=== PATIENT | female | born 1960 | race African-American/Black ===

== ENCOUNTER 2016-12-16 11:06 | Inpatient (IN) | payer OTHER ==
[2016-12-16 13:20] VITALS: BMI 17.7
--- NOTE | 2016-12-16 13:56 | HP ---
CIWA Score - CIWA Score Nausea/Vomitin Muscle Tremors: 3 Anxiety: 3 Agitation: 3 Paroxysmal Sweats: 2 Orientation: 0-Oriented Tacttile Disturbances: 2-Mild Itch/Numbness/Burn Auditory Disturbances: 2-Mild Harshness/Frighten Visual Disturbances: 2-Mild Sensitivity Headache: 2-Mild CIWA-Ar Total Score: 22 Admission ROS BHS - HPI Chief Complaint: I NEED HELP TO STOP ALCOHOL,COCAINE,MMTP Allergies/Adverse Reactions: Allergies Allergy/AdvReac Type Severity Reaction Status Date / Time No Known Allergies Allergy Verified 12/16/16 13:36 History of Present Illness: THIS 56 YEARS OLD FEMALE BLACK FEMALE WITH ALCOHOL,COCAINE DEPENDENCE,MMTP 60 MGS /DAY,LAST MEDICATED 12/15/16 SEVERAL ADMISSIONS ,LAST 10/20 [facility] LONGEST PERIOD OF SOBRIETY 8 YEARS Exam Limitations: No Limitations - Ebola screening Have you traveled outside of the country in the last 21 days: No Have you been sick,other than usual withdrawal symptoms: No - Review of Systems Constitutional: Chills, Loss of Appetite, Malaise, Night Sweats, Changes in sleep, Weakness, Unintentional Wgt. Loss EENT: reports: Tearing, Nose Congestion Respiratory: reports: No Symptoms reported, Other (ASTHMA) Cardiac: reports: No Symptoms Reported GI: reports: Nausea, Vomiting, Abdominal cramping : reports: No Symptoms Reported Musculoskeletal: reports: Back Pain, Muscle Pain Integumentary: reports: Dryness Neuro: reports: Headache, Tremors Endocrine: reports: No Symptoms Reported Hematology: reports: No Symptoms Reported Psychiatric: reports: Judgement Intact, Mood/Affect Appropiate, Orientated x3 Patient History - Patient Medical History Hx Anemia: No Hx Asthma: Yes (ON ALBUTEROL INHALER) Hx Chronic Obstructive Pulmonary Disease (COPD): No Hx Cancer: No Hx Cardiac Disorders: Yes (OLD [place] LAST 3 YEARS AGO) Hx Congestive Heart Failure: No Hx Hypertension: Yes (not on meds.) Hx Hypercholesterolemia: Yes (not taking any meds) Hx Pacemaker: No HX Cerebrovascular Accident: No Hx Seizures: No Hx Dementia: No Hx Diabetes: No Hx Gastrointestinal Disorders: No Hx Liver Disease: No Hx Genitourinary Disorders: No Hx Sexually Transmitted Disorders: No Hx Renal Disease (ESRD): No Hx Thyroid Disease: No Hx Human Immunodeficiency Virus (HIV): No (negative 3 weeks ago) Hx Hepatitis C: No Hx Depression: Yes Hx Suicide Attempt: No Hx Bipolar Disorder: Yes (not taking any meds) Hx Schizophrenia: No Other Medical History: NO SUICIDAL,NO HOMICIDAL - Patient Surgical History Past Surgical History: No - PPD History Previous Implant?: Yes Documented Results: Positive w/o proof Implanted On Prior R Admission?: No PPD to be Administered?: No - Reproductive History Patient is a Female of Child Bearing Age (11 -55 yrs old): Yes Patient : No - Smoking Cessation Smoking history: Current every day smoker Have you smoked in the past 12 months: Yes Aproximately how many cigarettes per day: 10 Hx Chewing Tobacco Use: No Initiated information on smoking cessation: Yes 'Breaking Loose' booklet given: 12/16/16 - Substance & Tx. History Hx Alcohol Use: Yes Hx Substance Use: Yes Substance Use Type: Alcohol, Cocaine, Marijuana - Substances Abused Alcohol Route: Oral Frequency: Daily Amount used: 4 pints vodka Age of first use: 14 Date of Last Use: 12/16/16 Cocaine Route: Smoking Frequency: Daily Amount used: $100 Age of first use: 17 Date of Last Use: 12/15/16 Marijuana/Hashish Route: Smoking Frequency: Daily Amount used: $5 Age of first use: 14 Date of Last Use: 12/15/16 Family Disease History - Family Disease History Family Disease History: Diabetes: Brother, Other: Father (), Mother ( ) Admission Physical Exam S - Vital Signs Vital Signs: Vital Signs - 24 hr 12/16/16 13:17 Temperature 96.4 F L Pulse Rate 56 L Respiratory 20 Rate Blood Pressure 157/80 - Physical General Appearance: Yes: Moderate Distress, Tremorous, Irritable, Sweating, Anxious HEENTM: Yes: Hearing grossly Normal, Normal ENT Inspection, CHEMA, Pharynx Normal , Nasal Congestion Respiratory: Yes: Lungs Clear, Normal Breath Sounds, No Respiratory Distress Neck: Yes: Within Normal Limits, Supple, Trachea in good position Breast: Yes: Within Normal Limits Cardiology: Yes: Within Normal Limits, Regular Rhythm, Regular Rate, S1, S2 Abdominal: Yes: Within Normal Limits, Normal Bowel Sounds, Non Tender, Flat, Soft Genitourinary: Yes: Within Normal Limits Back: Yes: Within Normal Limits, Normal Inspection, Muscle Spasm Musculoskeletal: Yes: full range of Motion, Back pain, Joint Stiffness, Muscle Pain Extremities: Yes: Normal Inspection, Normal Range of Motion, Tremors Neurological: Yes: spinning frame fixer II-XII NML intact, Fully Oriented, Alert, Motor Strength 5/5 Integumentary: Yes: Dry Lymphatic: Yes: Within Normal Limits - Diagnostic (1) Asthma Current Visit: No Status: Chronic (2) Cocaine dependence Current Visit: No Status: Chronic (3) Hypercholesteremia Current Visit: No Status: Chronic (4) Methadone maintenance therapy patient Current Visit: No Status: Chronic Comment: last dose taken yesterday with 40mg. dose verified for todays dose (5) Nicotine dependence Current Visit: No Status: Chronic (6) Alcohol dependence with uncomplicated withdrawal Current Visit: Yes Status: Acute (7) Hypertension Current Visit: No Status: Chronic (8) Bipolar disorder Current Visit: Yes Status: Acute (9) Weight loss Current Visit: Yes Status: Acute (10) Vaginitis Current Visit: Yes Status: Acute Cleared for Admission [facility] - Detox or Rehab [facility] Level of Care: Medically Managed Detox Regimen/Protocol: Librium [facility] Breath Alcohol Content Breath Alcohol Content: 0 Urine Pregancy Test - Result Urine Test Results: Negative- NO Line Present Urine Drug Screen - Results Drug Screen Negative: No Urine Drug Screen Results: THC-Marijuana, OPAL-Cocaine, OPI-Opiates, MTD- Methadone
[2016-12-16] MEDS ORDERED: MENTHOL/PHENOL 1 EACH UD MM PRN (14:11)
[2016-12-16] MEDS ORDERED: diphenhydrAMINE HCL 50 MG CAPSULE PO PRN (14:11)
[2016-12-16] MEDS ORDERED: ACETAMINOPHEN 325 MG TABLET (FP) PO PRN (14:11)
[2016-12-16] MEDS ORDERED: NICOTINE POLACRILEX 2 MG GUM BUC PRN (14:11)
[2016-12-16] MEDS ORDERED: LOPERAMIDE HCL 2 MG CAPSULE PO PRN (14:11)
[2016-12-16] MEDS ORDERED: MAG HYDROX/AL HYDROX/SIMETH 30 ML UNIT-DOSE CUP PO PRN (14:11)
[2016-12-16] MEDS ORDERED: IBUPROFEN 400 MG TABLET (FP) PO PRN (14:11)
[2016-12-16] MEDS ORDERED: hydrOXYzine PAMOATE 25 MG CAPSULE (FP) PO PRN (14:11)
[2016-12-16] MEDS ORDERED: chlordiazePOXIDE HCL 25 MG CAPSULE PO PRN (14:11)
[2016-12-16] MEDS ORDERED: MAGNESIUM HYDROX 2400MG/30ML ORAL SUSPENSION 30 ML CUP PO PRN (14:11)
[2016-12-16] MEDS ORDERED: P-EPHED 60MG/TRIPROLIDI 2.5MG TABLET PO PRN (14:11)
[2016-12-16] MEDS ORDERED: guaiFENesin/D-METHORPHAN HB 10 ML UNIT-DOSE CUPS PO PRN (14:11)
[2016-12-16] MEDS ORDERED: MAGNESIUM CITRATE 300 ML BOTTLE PO PRN (14:11)
[2016-12-16] MEDS ORDERED: ALBUTEROL SO4 6.7 GM HFA INHALER IH PRN (14:16)
[2016-12-16] MEDS ORDERED: chlordiazePOXIDE HCL 25 MG CAPSULE PO ONE (14:32)
[2016-12-16] MEDS ORDERED: METHADONE HCL 10 MG TABLET PO ONE (14:51)
[2016-12-16] MEDS ORDERED: METHADONE 40 MG, METHADONE 20 MG PO ONE (15:05)
[2016-12-16] MEDS ORDERED: METHADONE HCL 40 MG DISPERSABLE TABLET ONE (15:43)
[2016-12-16] MEDS ORDERED: METHADONE HCL 10 MG TABLET ONE (15:44)
[2016-12-16] MEDS: chlordiazePOXIDE HCL 25 MG CAPSULE PO SCH ×2 (17:35→22:24)
[2016-12-16 18:42] LABS: URINE APPEARANCE CLEAR; URINE BILIRUBIN NEGATIVE (NEGATIVE); URINE BLOOD NEGATIVE (NEGATIVE); URINE COLOR STRAW; URINE GLUCOSE (UA) NEGATIVE (NEGATIVE); URINE KETONE NEGATIVE (NEGATIVE); URINE NITRITE NEGATIVE (NEGATIVE); URINE PROTEIN NEGATIVE (NEGATIVE); URINE UROBILINOGEN NEGATIVE E.U./dl (0.2-1.0)
[2016-12-16 18:45] LABS: URINE LEUK ESTERASE 1+ (NEGATIVE)
[2016-12-16 18:49] LABS: URINE RBC <1 /hpf (0-3); URINE WBC 5 /hpf (3-5)
[2016-12-16] MEDS: THIAMINE HCL 100 MG TABLET (FP) PO SCH (22:24)
[2016-12-16] MEDS: MICONAZOLE NITRATE 100 MG SUPP SUPP.VAG PV SCH (23:02)
[2016-12-17] MEDS ORDERED: METHADONE HCL 40 MG DISPERSABLE TABLET ONE (04:42)
[2016-12-17] MEDS ORDERED: METHADONE HCL 10 MG TABLET ONE (04:43)
[2016-12-17] MEDS ORDERED: METHADONE HCL 10 MG TABLET PO SCH (06:00)
[2016-12-17] MEDS: METHADONE 40 MG, METHADONE 20 MG PO SCH (06:06)
[2016-12-17] MEDS: chlordiazePOXIDE HCL 25 MG CAPSULE PO SCH ×4 (06:06→22:24)
[2016-12-17 10:23] LABS: MCH 26.4 pg (25.7-33.7); MCHC 32.5 g/dl (32.0-36.0); MEAN CELL VOLUME 81.2 fl (80-96); PLATELET COUNT 275 K/MM3 (134-434); RDW 14.1 % (11.6-15.6); WHITE BLOOD COUNT 7.1 K/mm3 (4.0-10.0)
--- NOTE | 2016-12-17 10:39 | CONSULT ---
[facility] Psychiatric Consult - Data Date of interview: 12/17/16 Admission source: [facility] Identifying data: Readmission to [facility] for this 56 y/o AA female seeking detox treatment on [address] [place] [address] for alcohol,cocaine,opioid and marijuana dependence.Patient is single,a mother of two,homeless,unemployed and supported on Public Assistance. Substance Abuse History: - Smoking Cessation. Smoking history: Current every day smoker. Have you smoked in the past 12 months: Yes. Aproximately how many cigarettes per day: 10. Hx Chewing Tobacco Use: No. Initiated information on smoking cessation: Yes. 'Breaking Loose' booklet given: 12/16/16. - Substance & Tx. History. Hx Alcohol Use: Yes. Hx Substance Use: Yes. Substance Use Type : Alcohol, Cocaine, Marijuana. - Substances Abused. Alcohol. Route: Oral. Frequency: Daily. Amount used: 4 pints vodka. Age of first use: 14. Date of Last Use: 12/16/16. Cocaine. Route: Smoking. Frequency: Daily. Amount used: $100. Age of first use: 17. Date of Last Use: 12/15/16. Marijuana/ Hashish. Route: Smoking. Frequency: Daily. Amount used: $5. Age of first use : 14. Date of Last Use: 12/15/16. Confirmed by patient. Medical History: Bronchial asthma,hypertension,dyslipidemia and a history of myocardial infarction. Psychiatric History: Diagnosed with Bipolar Disorder.Past psychiatric hospitalizations at [facility].Prescribed seroquel 200 mg/hs + trazodone 100 mg/hs as per self-report.Ms Martinez indicates that she took her medications about a week ago.Eager to resume regimen at [address] [place] [address].Patient gets her psychiatric outpatient services at [facility] clinic.She admits to a remote history of suicide attempt via hanging. Physical/Sexual Abuse/Trauma History: Patient denies. Additional Comment: Urine Drug Screen Results: THC-Marijuana, OPAL-Cocaine, OPI- Opiates, MTD-Methadone.Noted. Mental Status Exam - Mental Status Exam Alert and Oriented to: Time, Place, Person Cognitive Function: Good Patient Appearance: Well Groomed Mood: Withdrawn Affect: Constricted Patient Behavior: Sedated (light sedation), Fatigued, Cooperative Speech Pattern: Clear, Delayed Voice Loudness: Moderately Soft/Quiet Thought Process: Goal Oriented Thought Disorder: Not Present Hallucinations: Denies Suicidal Ideation: Denies Homicidal Ideation: Denies Insight/Judgement: Poor Sleep: Well Appetite: Good Muscle strength/Tone: Normal Gait/Station: Normal Psychiatric Findings - Problem List ([place] 1, 2,3) (1) Alcohol dependence with uncomplicated withdrawal Current Visit: Yes Status: Acute (2) Cocaine dependence Current Visit: Yes Status: Acute (3) Nicotine dependence Current Visit: Yes Status: Acute (4) Opioid dependence Current Visit: Yes Status: Acute (5) Opioid dependence on agonist therapy Current Visit: Yes Status: Acute (6) Bipolar disorder Current Visit: Yes Status: Chronic (7) Asthma Current Visit: Yes Status: Chronic (8) Hypercholesteremia Current Visit: Yes Status: Chronic (9) Hypertension Current Visit: Yes Status: Chronic - Initial Treatment Plan Initial Treatment Plan: Psychoeducation.Detoxification.Medications : seroquel 200 mg po hs + trazodone is held (for now).Side effects/benefits of both drugs are discussed with the patient.She agrees with this plan of care.Observation.
[2016-12-17 10:40] LABS: ALBUMIN 3.9 g/dl (3.4-5.0); ANION GAP 14 (8-16); CO2 29 mmol/L (21-32); CREATININE 0.8 mg/dL (0.55-1.02); GLUCOSE,RANDOM 99 mg/dL (74-106); SGOT/AST 28 U/L (15-37); SGPT/ALT 36 U/L (12-78)
[2016-12-17 10:43] LABS: ALK PHOS 101 U/L (45-117); BILIRUBIN,TOTAL 0.4 mg/dL (0.2-1.0); TOT PROT 8.4 g/dl (6.4-8.2)
[2016-12-17] MEDS: PRENATAL VITAMINS W/ FOLIC ACID TABLET (FP) PO SCH (10:48)
[2016-12-17] MEDS: ASPIRIN 81 MG CHEWABLE TABLETS PO SCH (10:48)
--- NOTE | 2016-12-17 14:12 | PN ---
[facility] CIWA - CIWA Score Nausea/Vomitin Muscle Tremors: 3 Anxiety: 3 Agitation: 2 Paroxysmal Sweats: 1-Minimal Palms Moist Orientation: 0-Oriented Tacttile Disturbances: 1-Very Mild Itch/Numbness Auditory Disturbances: 1-Very Mild Visual Disturbances: 1-Very Mild Sensitivity Headache: 2-Mild CIWA-Ar Total Score: 17 BHS Progress Note (SOAP) Subjective: ALERT,IRRITABLE,ANXIOUS,INTERRUPTED SLEEP,TREMOR,PAIN IN THE BODY Objective: 12/17/16 14:09 Vital Signs Temperature 98.2 F 12/17/16 10:38 Pulse Rate 89 12/17/16 10:38 Respiratory Rate 16 12/17/16 10:38 Blood Pressure 117/69 12/17/16 10:38 O2 Sat by Pulse Oximetry (%) EKG SINUS BRADYCARDIA 58/MIN NO CHEST PAIN,NO SOB,NO DIZZINESS Laboratory Last Values WBC 7.1 K/mm3 (4.0-10.0) 12/17/16 06:05 RBC 5.57 M/mm3 (3.60-5.2) H 12/17/16 06:05 Hgb 14.7 GM/dL (10.7-15.3) D 12/17/16 06:05 Hct 45.2 % (32.4-45.2) D 12/17/16 06:05 MCV 81.2 fl (80-96) 12/17/16 06:05 MCHC 32.5 g/dl (32.0-36.0) 12/17/16 06:05 RDW 14.1 % (11.6-15.6) 12/17/16 06:05 Plt Count 275 K/MM3 (134-434) 12/17/16 06:05 MPV 8.0 fl (7.5-11.1) 12/17/16 06:05 Sodium 142 mmol/L (136-145) 12/17/16 06:05 Potassium 3.7 mmol/L (3.5-5.1) 12/17/16 06:05 Chloride 99 mmol/L (98-107) 12/17/16 06:05 Carbon Dioxide 29 mmol/L (21-32) 12/17/16 06:05 Anion Gap 14 (8-16) 12/17/16 06:05 BUN 8 mg/dL (7-18) D 12/17/16 06:05 Creatinine 0.8 mg/dL (0.55-1.02) 12/17/16 06:05 Creat Clearance w eGFR > 60 (>60) 12/17/16 06:05 Random Glucose 99 mg/dL (74-106) 12/17/16 06:05 Calcium 9.0 mg/dL (8.5-10.1) 12/17/16 06:05 Total Bilirubin 0.4 mg/dL (0.2-1.0) D 12/17/16 06:05 AST 28 U/L (15-37) D 12/17/16 06:05 ALT 36 U/L (12-78) 12/17/16 06:05 Alkaline Phosphatase 101 U/L (45-117) D 12/17/16 06:05 Total Protein 8.4 g/dl (6.4-8.2) H D 12/17/16 06:05 Albumin 3.9 g/dl (3.4-5.0) D 12/17/16 06:05 Urine Color Straw 12/16/16 15:00 Urine Appearance Clear 12/16/16 15:00 Urine pH 7.0 (5.0-8.0) 12/16/16 15:00 Ur Specific [place] 1.010 (1.005-1.025) 12/16/16 15:00 Urine Protein Negative (NEGATIVE) 12/16/16 15:00 Urine Glucose (UA) Negative (NEGATIVE) 12/16/16 15:00 Urine Ketones Negative (NEGATIVE) 12/16/16 15:00 Urine Blood Negative (NEGATIVE) 12/16/16 15:00 Urine Nitrite Negative (NEGATIVE) 12/16/16 15:00 Urine Bilirubin Negative (NEGATIVE) 12/16/16 15:00 Urine Urobilinogen Negative E.U./dl (0.2-1.0) 12/16/16 15:00 Ur Leukocyte Esterase 1+ (NEGATIVE) H 12/16/16 15:00 Urine RBC <1 /hpf (0-3) 12/16/16 15:00 Urine WBC 5 /hpf (3-5) 12/16/16 15:00 Ur Epithelial Cells Rare /hpf (FEW) 12/16/16 15:00 RPR Titer Nonreactive (NONREACTIVE) D 12/17/16 06:05 Assessment: 12/17/16 14:11 WITHDRAWAL SYMPTOM Plan: CONTINUE DETOX
[2016-12-17] MEDS: QUEtiapine FUMARATE 200 MG TABLET PO SCH (22:23)
[2016-12-17] MEDS: THIAMINE HCL 100 MG TABLET (FP) PO SCH (22:23)
[2016-12-17] MEDS: MICONAZOLE NITRATE 100 MG SUPP SUPP.VAG PV SCH (22:24)
[2016-12-18] MEDS ORDERED: METHADONE HCL 10 MG TABLET ONE (04:38)
[2016-12-18] MEDS ORDERED: METHADONE HCL 40 MG DISPERSABLE TABLET ONE (04:38)
[2016-12-18] MEDS: chlordiazePOXIDE HCL 25 MG CAPSULE PO SCH ×2 (06:25→11:08)
[2016-12-18] MEDS: METHADONE 40 MG, METHADONE 20 MG PO SCH (06:25)
[2016-12-18] MEDS: PRENATAL VITAMINS W/ FOLIC ACID TABLET (FP) PO SCH (11:07)
[2016-12-18] MEDS: ASPIRIN 81 MG CHEWABLE TABLETS PO SCH (11:07)
--- NOTE | 2016-12-18 11:38 | PN ---
S CIWA - CIWA Score Nausea/Vomitin Muscle Tremors: 3 Anxiety: 2 Agitation: 2 Paroxysmal Sweats: 1-Minimal Palms Moist Orientation: 0-Oriented Tacttile Disturbances: 1-Very Mild Itch/Numbness Auditory Disturbances: 1-Very Mild Visual Disturbances: 1-Very Mild Sensitivity Headache: 2-Mild CIWA-Ar Total Score: 16 BHS Progress Note (SOAP) Subjective: ALERT,IRRITABLE,ANXIOUS,INTERRUPTED SLEEP,TREMOR Objective: 12/18/16 11:37 12/18/16 11:37 Vital Signs Temperature 98.3 F 12/18/16 10:21 Pulse Rate 58 L 12/18/16 10:21 Respiratory Rate 16 12/18/16 10:21 Blood Pressure 105/73 12/18/16 10:21 O2 Sat by Pulse Oximetry (%) Assessment: 12/18/16 11:37 WITHDRAWAL SYMPTOM Plan: CONTINUE DETOX
[2016-12-18] MEDS: chlordiazePOXIDE 5 MG CAPSULE PO SCH ×2 (17:39→22:15)
[2016-12-18] MEDS: MICONAZOLE NITRATE 100 MG SUPP SUPP.VAG PV SCH (22:15)
[2016-12-18] MEDS: THIAMINE HCL 100 MG TABLET (FP) PO SCH (22:16)
[2016-12-18] MEDS: QUEtiapine FUMARATE 200 MG TABLET PO SCH (22:16)
[2016-12-19] MEDS ORDERED: METHADONE HCL 40 MG DISPERSABLE TABLET ONE (03:59)
[2016-12-19] MEDS ORDERED: METHADONE HCL 10 MG TABLET ONE (03:59)
[2016-12-19] MEDS: METHADONE 40 MG, METHADONE 20 MG PO SCH (05:59)
[2016-12-19] MEDS: chlordiazePOXIDE 5 MG CAPSULE PO SCH ×2 (06:05→10:47)
[2016-12-19] MEDS: ASPIRIN 81 MG CHEWABLE TABLETS PO SCH (10:45)
[2016-12-19] MEDS: PRENATAL VITAMINS W/ FOLIC ACID TABLET (FP) PO SCH (10:45)
--- NOTE | 2016-12-19 10:46 | PN ---
BHS Progress Note (SOAP) Subjective: vaginal discharge foul smelling sweats groggy Objective: 12/19/16 10:45 Vital Signs Temperature 96.8 F L 12/19/16 09:34 Pulse Rate 77 12/19/16 09:34 Respiratory Rate 18 12/19/16 09:34 Blood Pressure 135/76 12/19/16 09:34 O2 Sat by Pulse Oximetry (%) awake/alert ambulating no acute distress Assessment: 12/19/16 10:45 withdrawal sx Plan: continue detox increase fluids flagyl po x 7 days d/c in am
[2016-12-19] MEDS: metroNIDAZOLE 250 MG TABLET PO SCH ×2 (11:13→22:34)
--- NOTE | 2016-12-19 13:06 | EKG ---
Test Reason : Blood Pressure : / mmHG Vent. Rate : 058 BPM Atrial Rate : 058 BPM P-R Int : 156 ms QRS Dur : 084 ms QT Int : 424 ms P-R-T Axes : 066 061 057 degrees QTc Int : 416 ms SINUS BRADYCARDIA VOLTAGE CRITERIA FOR LEFT VENTRICULAR HYPERTROPHY ABNORMAL ECG NO PREVIOUS ECGS AVAILABLE Confirmed by COLLINS JADE, AKIKO ([id number]) on 12/19/2016 1:05:47 PM Referred By: Thierry Martin Confirmed By:AKIKO GUADALUPE MD
[2016-12-19] MEDS: chlordiazePOXIDE HCL 10 MG CAPSULE PO SCH ×2 (17:34→23:55)
[2016-12-19] MEDS: THIAMINE HCL 100 MG TABLET (FP) PO SCH (22:34)
[2016-12-19] MEDS: MICONAZOLE NITRATE 100 MG SUPP SUPP.VAG PV SCH (23:55)
[2016-12-19] MEDS: QUEtiapine FUMARATE 200 MG TABLET PO SCH (23:56)
[2016-12-20] MEDS ORDERED: METHADONE HCL 40 MG DISPERSABLE TABLET ONE (04:12)
[2016-12-20] MEDS ORDERED: METHADONE HCL 10 MG TABLET ONE (04:13)
[2016-12-20] MEDS: METHADONE 40 MG, METHADONE 20 MG PO SCH (06:00)
[2016-12-20] MEDS: chlordiazePOXIDE HCL 10 MG CAPSULE PO SCH ×2 (06:00→10:29)
--- NOTE | 2016-12-20 08:27 | PN ---
S Progress Note (SOAP) Subjective: ALERT,NO COMPLAINT Objective: 12/20/16 08:25 Vital Signs Temperature 98.1 F 12/20/16 06:00 Pulse Rate 72 12/20/16 06:00 Respiratory Rate 16 12/20/16 06:00 Blood Pressure 134/77 12/20/16 06:00 O2 Sat by Pulse Oximetry (%) Assessment: 12/20/16 08:25 DETOX COMPLETED,NO WITHDRAWAL SYMPTOM Plan: DISCHARGE TODAY,FOLLOW UP WITH AFTER CARE PROGRAM ARRANGEMENT
--- NOTE | 2016-12-20 08:42 | DS ---
[facility] Detox Discharge Summary Admission Date: 12/16/16 Discharge Date: 12/20/16 - History Present History: Alcohol Dependence, Cocaine Dependence, MMTP Additional Comments: FOLLLOW UP WITH AFTER [facility] PROGRAM ARRANGEMENT AND PMD FOR MEDICAL PROBLEM Pertinent Past History: ASTHMA HYPERTENSION NICOTINE DEPENDENCE WEIGHT LOSS BIPOLAR DISORDER VAGINITIS - Physical Exam Results Vital Signs: Vital Signs Temperature 98.1 F 12/20/16 06:00 Pulse Rate 72 12/20/16 06:00 Respiratory Rate 16 12/20/16 06:00 Blood Pressure 134/77 12/20/16 06:00 O2 Sat by Pulse Oximetry (%) Pertinent Admission Physical Exam Findings: WITHDRAWAL SYMPTOM - Treatment Hospital Course: Detox Protocol Followed, Detoxed Safely, Responded well, Discharged Condition Good, Rehab Referral Accepted Patient has Accepted a Rehab Referral to: [facility] - Medication Discharge Medications: Ambulatory Orders Quetiapine Fumarate [Seroquel -] 200 mg PO HS 12/16/16 Trazodone HCl [Desyrel -] 100 mg PO HS 12/16/16 Quetiapine Fumarate [Seroquel -] 200 mg PO HS #30 tab 12/17/16 Albuterol Sulfate Inhaler - [Ventolin HFA Inhaler -] 2 inh PO Q4H PRN #1 inh Aspirin [ASA -] 81 mg PO DAILY #30 tab 12/20/16 Metronidazole [Flagyl -] 500 mg PO BID #14 tablet 12/20/16 - Diagnosis (1) Asthma Current Visit: Yes Status: Chronic (2) Cocaine dependence Current Visit: Yes Status: Acute (3) Hypercholesteremia Current Visit: Yes Status: Chronic (4) Methadone maintenance therapy patient Current Visit: No Status: Chronic (5) Nicotine dependence Current Visit: Yes Status: Acute (6) Alcohol dependence with uncomplicated withdrawal Current Visit: Yes Status: Acute (7) Hypertension Current Visit: Yes Status: Chronic (8) Bipolar disorder Current Visit: Yes Status: Chronic (9) Weight loss Current Visit: Yes Status: Acute (10) Vaginitis Current Visit: Yes Status: Acute - AMA Did Patient Leave Against Medical Advice: No
[2016-12-20 09:39] VITALS: BP 148/86; PULSE 79; TEMP 97.6
[2016-12-20] MEDS: ASPIRIN 81 MG CHEWABLE TABLETS PO SCH (10:28)
[2016-12-20] MEDS: PRENATAL VITAMINS W/ FOLIC ACID TABLET (FP) PO SCH (10:28)
[2016-12-20] MEDS: metroNIDAZOLE 250 MG TABLET PO SCH (10:28)
== END 2016-12-20 11:05 | disposition home or self-care (01) | DRG 773 ==
LOC: YASAS 11:06 → Y6N 14:24
PROVIDERS: ADMIT Internal Medicine Addiction Medicine; ATTEND Internal Medicine Addiction Medicine
PROC: HZ2ZZZZ Detoxification Services for Substance Abuse Treatment (ICD-10-PCS; principal; 2016-12-16)
DX: F10.230 Alcohol dependence with withdrawal, uncomplicated (principal); F11.20 Opioid dependence, uncomplicated; F14.20 Cocaine dependence, uncomplicated; F17.210 Nicotine dependence, cigarettes, uncomplicated; F31.9 Bipolar disorder, unspecified; J45.909 Unspecified asthma, uncomplicated; E78.5 Hyperlipidemia, unspecified; I25.2 Old myocardial infarction; I10 Essential (primary) hypertension; R00.1 Bradycardia, unspecified; N76.0 Acute vaginitis; Z87.898 Personal history of other specified conditions
CPT/HCPCS: 36415; 71010-TC; 80053; 81003; 81015; 85027; 86593; 93005; 93010

== ENCOUNTER 2019-05-01 13:50 | Inpatient (IN) | payer OTHER ==
[2019-05-01 15:22] VITALS: BMI 18.8
--- NOTE | 2019-05-01 17:06 | HP ---
CIWA Score Nausea/Vomitin-Mild Nausea/No Vomiting Muscle Tremors: 1-None Visible, but [place] Anxiety: 1-Mildly Anxious Agitation: 1-Slight > Activity Paroxysmal Sweats: No Perspiration Orientation: 0-Oriented Tacttile Disturbances: 0-None Auditory Disturbances: 0-None Visual Disturbances: 0-None Headache: 1-Very Mild CIWA-Ar Total Score: 5 - Admission Criteria [facility] Guidelines: Admission for Medically Managed Detox: Requires at least one of the followin. CIWA greater than 12 2. Seizures within the past 24 hours 3. Delirium tremens within the past 24 hours 4. Hallucinations within the past 24 hours 5. Acute intervention needed for co occurring medical disorder 6. Acute intervention needed for co occurring psychiatric disorder 7. Severe withdrawal that cannot be handled at a lower level of care (continued vomiting, continued diarrhea, abnormal vital signs) requiring intravenous medication and/or fluids 8. Admission ROS S - [facility] Chief Complaint: pt here for rehab. Allergies/Adverse Reactions: Allergies Allergy/AdvReac Type Severity Reaction Status Date / Time mirtazapine [From Remeron] Allergy Intermediate Itching Verified 05/01/19 15:09 History of Present Illness: 59 yo with opioid use disorder, on MAT methadone, states drinks several pints of alcohol- last use 3 days ago. Wants to go to rehab. h/o asthma, high chol, bipolar/schizophrenia, HTN. PCP= Dr. Corrales and MH- Dr. Cook at [facility]. Cocaine- 4 bags/day IH THC- daily heroin occasional use - Ebola screening Have you traveled outside of the country in the last 21 days: No Have you had contact with anyone from an Ebola affected area: No Do you have a fever: No Patient History - Patient Medical History Hx Anemia: No Hx Asthma: Yes (ON ALBUTEROL INHALER) Hx Chronic Obstructive Pulmonary Disease (COPD): No Hx Cancer: No Hx Cardiac Disorders: Yes (OLD [place] LAST 3 YEARS AGO) Hx Congestive Heart Failure: No Hx Hypertension: Yes (not on meds.) Hx Hypercholesterolemia: Yes (not taking any meds) Hx Pacemaker: No HX Cerebrovascular Accident: No Hx Seizures: No Hx Dementia: No Hx Diabetes: No Hx Gastrointestinal Disorders: No Hx Liver Disease: No Hx Genitourinary Disorders: No Hx Sexually Transmitted Disorders: No Hx Renal Disease (ESRD): No Hx Thyroid Disease: No Hx Human Immunodeficiency Virus (HIV): No (negative 3 weeks ago) Hx Hepatitis C: No Hx Depression: Yes Hx Suicide Attempt: No Hx Bipolar Disorder: Yes (not taking any meds) Hx Schizophrenia: No - Patient Surgical History Past Surgical History: No - Smoking Cessation Smoking history: Current every day smoker Have you smoked in the past 12 months: Yes Aproximately how many cigarettes per day: 10 Hx Chewing Tobacco Use: No Initiated information on smoking cessation: Yes 'Breaking Loose' booklet given: 05/01/19 - Substances abused Alcohol Substance route: Oral Frequency: Daily Amount used: 3-4 pints vodka Age of first use: 15 Date of last use: 05/01/19 Heroin Substance route: Inhalation Frequency: Daily Amount used: 7 bags Age of first use: 15 Date of last use: 04/28/19 Admission Physical Exam BHS - Vital Signs Vital Signs: Vital Signs - 24 hr 05/01/19 15:15 Temperature 97.1 F L Pulse Rate 84 Respiratory 18 Rate Blood Pressure 107/71 - Physical General Appearance: Yes: Within Normal Limits, Thin HEENTM: Yes: Within Normal Limits, Hearing grossly Normal, Pharynx Normal Respiratory: Yes: Within Normal Limits, Chest Non-Tender, Lungs Clear Neck: Yes: Within Normal Limits, No masses,lesions,Nodules Cardiology: Yes: Within Normal Limits, Regular Rhythm Abdominal: Yes: Within Normal Limits, Normal Bowel Sounds Genitourinary: Yes: Within Normal Limits Musculoskeletal: Yes: Within Normal Limits Extremities: Yes: Within Normal Limits Neurological: Yes: Within Normal Limits Integumentary: Yes: Within Normal Limits Lymphatic: Yes: Within Normal Limits - Diagnostic (1) Alcohol dependence with uncomplicated withdrawal Current Visit: No Status: Acute (2) Cocaine dependence Current Visit: No Status: Acute (3) Opioid dependence on agonist therapy Current Visit: No Status: Acute (4) Schizophrenia, paranoid type Current Visit: No Status: Acute (5) Weight loss Current Visit: No Status: Acute (6) Asthma Current Visit: No Status: Chronic (7) Bipolar disorder Current Visit: No Status: Chronic (8) Hypercholesteremia Current Visit: No Status: Chronic (9) Hypertension Current Visit: No Status: Chronic Breathalyzer - Breathalyzer Breathalyzer: 0 Urine Drug Screen - Test Device Lot number: [id number] Expiration date: 01/04/21 - Control Is test valid?: Yes - Results Drug screen NEGATIVE: No Urine drug screen results: THC-Marijuana, OPAL-Cocaine, MTD-Methadone Inpatient Rehab Admission - Rehab Decision to Admit Inpatient rehab admission?: Yes - Initial Determination Are CD services needed?: Yes Free of communicable disease: Yes Not in need of hospitalization: Yes - Rehab Admission Criteria Previous failed treatment: Yes Poor recovery environment: Yes Comorbidities: Yes Lacks judgement: Yes Patient is meeting Inpatient Rehab admission criteria:: Yes
[2019-05-01] MEDS ORDERED: LOPERAMIDE HCL 2 MG CAPSULE PO PRN (17:14)
[2019-05-01] MEDS ORDERED: P-EPHED 60MG/TRIPROLIDI 2.5MG TABLET PO PRN (17:14)
[2019-05-01] MEDS ORDERED: guaiFENesin 200 MG/10 ML 10 ML UNIT-DOSE CUPS PO PRN (17:14)
[2019-05-01] MEDS ORDERED: MENTHOL/PHENOL 1 EACH UD MM PRN (17:14)
[2019-05-01] MEDS ORDERED: ACETAMINOPHEN 325 MG TABLET (FP) PO PRN (17:14)
[2019-05-01] MEDS ORDERED: IBUPROFEN 400 MG TABLET (FP) PO PRN (17:14)
[2019-05-01] MEDS ORDERED: MAGNESIUM CITRATE 300 ML BOTTLE PO PRN (17:14)
[2019-05-01] MEDS ORDERED: MAGNESIUM HYDROX 2400MG/30ML ORAL SUSPENSION 30 ML CUP PO PRN (17:14)
[2019-05-01] MEDS ORDERED: hydrOXYzine PAMOATE 25 MG CAPSULE (FP) PO PRN (17:14)
[2019-05-01] MEDS ORDERED: QUEtiapine FUMARATE 50 MG TABLET PO SCH (22:00)
[2019-05-01] MEDS: MONTELUKAST NA 10 MG TABLET PO SCH (22:12)
[2019-05-01] MEDS: THIAMINE HCL 100 MG TABLET (FP) PO SCH (22:12)
[2019-05-02] MEDS: ALBUTEROL SO4 8 GM HFA INHALER IH PRN (06:40)
[2019-05-02] MEDS ORDERED: METHADONE HCL 10 MG TABLET PO SCH (07:45)
[2019-05-02] MEDS ORDERED: METHADONE HCL 10 MG TABLET ONE (08:37)
[2019-05-02] MEDS ORDERED: METHADONE HCL 40 MG DISPERSABLE TABLET ONE (08:38)
[2019-05-02] MEDS: METHADONE 40 MG, METHADONE 30 MG PO SCH (08:39)
[2019-05-02 09:37] LABS: HEMATOCRIT 40.1 % (32.4-45.2); HEMOGLOBIN 13.1 GM/dL (10.7-15.3); MCH 26.9 pg (25.7-33.7); MCHC 32.6 g/dl (32.0-36.0); MEAN CELL VOLUME 82.2 fl (80-96); MEAN PLT VOLUME 7.4 fl (7.5-11.1); PLATELET COUNT 271 K/MM3 (134-434); RBC 4.87 M/mm3 (3.60-5.2); RDW 14.3 % (11.6-15.6); WHITE BLOOD COUNT 5.6 K/mm3 (4.0-10.0)
[2019-05-02 10:03] LABS: ALBUMIN 3.1 g/dl (3.4-5.0); BILIRUBIN,TOTAL 0.2 mg/dL (0.2-1); BLOOD UREA NITROGEN 13.8 mg/dL (7-18); CALCIUM 8.8 mg/dL (8.5-10.1); CREATININE 0.8 mg/dL (0.55-1.3); POTASSIUM 4.4 mmol/L (3.5-5.1); TOT PROT 6.5 g/dl (6.4-8.2)
[2019-05-02] MEDS: PRENATAL VITAMINS W/ FOLIC ACID TABLET (FP) PO SCH (10:06)
[2019-05-02] MEDS: amLODIPine BESYLATE 5 MG TABLET (FP) PO SCH (10:06)
[2019-05-02] MEDS: FOLIC ACID 1 MG TABLET (FP) PO SCH (10:06)
[2019-05-02] MEDS: ASPIRIN 81 MG CHEWABLE TABLETS PO SCH (10:06)
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
[2019-05-02] MEDS: MELATONIN 5 MG TABLETS PO PRN (21:18)
[2019-05-02] MEDS: MONTELUKAST NA 10 MG TABLET PO SCH (21:18)
[2019-05-02] MEDS: THIAMINE HCL 100 MG TABLET (FP) PO SCH (21:18)
[2019-05-02] MEDS ORDERED: QUEtiapine FUMARATE 100 MG TABLET (FP) ONE (21:19)
[2019-05-02] MEDS: QUEtiapine FUMARATE 300 MG TABLET PO SCH (21:20)
[2019-05-03] MEDS ORDERED: METHADONE HCL 10 MG TABLET ONE (03:26)
[2019-05-03] MEDS ORDERED: METHADONE HCL 40 MG DISPERSABLE TABLET ONE (03:26)
[2019-05-03] MEDS: METHADONE 40 MG, METHADONE 30 MG PO SCH (06:04)
[2019-05-03] MEDS: amLODIPine BESYLATE 5 MG TABLET (FP) PO SCH (10:32)
[2019-05-03] MEDS: ASPIRIN 81 MG CHEWABLE TABLETS PO SCH (10:32)
[2019-05-03] MEDS: PRENATAL VITAMINS W/ FOLIC ACID TABLET (FP) PO SCH (10:32)
[2019-05-03] MEDS: FOLIC ACID 1 MG TABLET (FP) PO SCH (10:32)
[2019-05-03 17:08] LABS: EPI CELLS 6.4 /HPF (0-5/HPF); HYALINE CASTS 8 /lpf (0-8); URINE APPEARANCE CLEAR; URINE BACTERIA 75.9 /hpf (NEGATIVE); URINE BILIRUBIN NEGATIVE (NEGATIVE); URINE COLOR DK YELLOW; URINE GLUCOSE (UA) NEGATIVE (NEGATIVE); URINE KETONE NEGATIVE (NEGATIVE); URINE LEUK ESTERASE 1+ (NEGATIVE); URINE NITRITE NEGATIVE (NEGATIVE); URINE PROTEIN NEGATIVE (NEGATIVE); URINE UROBILINOGEN 0.2 mg/dL (0.2-1.0); URINE WBC 5 /hpf (0-5)
[2019-05-03 17:24] LABS: URINE RBC 0-4 /hpf (0-4)
[2019-05-03] MEDS ORDERED: QUEtiapine FUMARATE 100 MG TABLET (FP) ONE (19:48)
[2019-05-03] MEDS: QUEtiapine FUMARATE 300 MG TABLET PO SCH (21:30)
[2019-05-03] MEDS: MONTELUKAST NA 10 MG TABLET PO SCH (21:30)
[2019-05-03] MEDS: THIAMINE HCL 100 MG TABLET (FP) PO SCH (21:30)
[2019-05-03] MEDS: ALBUTEROL SO4 8 GM HFA INHALER IH PRN (23:08)
[2019-05-04] MEDS ORDERED: METHADONE HCL 40 MG DISPERSABLE TABLET ONE (07:08)
[2019-05-04] MEDS ORDERED: METHADONE HCL 10 MG TABLET ONE (07:08)
[2019-05-04] MEDS: METHADONE 40 MG, METHADONE 30 MG PO SCH (07:09)
[2019-05-04] MEDS: amLODIPine BESYLATE 5 MG TABLET (FP) PO SCH (10:01)
[2019-05-04] MEDS: PRENATAL VITAMINS W/ FOLIC ACID TABLET (FP) PO SCH (10:01)
[2019-05-04] MEDS: ASPIRIN 81 MG CHEWABLE TABLETS PO SCH (10:01)
[2019-05-04] MEDS: FOLIC ACID 1 MG TABLET (FP) PO SCH (10:01)
[2019-05-04] MEDS: ALBUTEROL SO4 8 GM HFA INHALER IH PRN (17:53)
[2019-05-04] MEDS ORDERED: QUEtiapine FUMARATE 100 MG TABLET (FP) ONE (19:50)
[2019-05-04] MEDS: THIAMINE HCL 100 MG TABLET (FP) PO SCH (22:04)
[2019-05-04] MEDS: QUEtiapine FUMARATE 300 MG TABLET PO SCH (22:06)
[2019-05-04] MEDS: MONTELUKAST NA 10 MG TABLET PO SCH (22:09)
[2019-05-04] MEDS: MAG HYDROX/AL HYDROX/SIMETH 30 ML UNIT-DOSE CUP PO PRN (22:11)
[2019-05-05] MEDS ORDERED: METHADONE HCL 10 MG TABLET ONE (06:09)
[2019-05-05] MEDS: METHADONE 40 MG, METHADONE 30 MG PO SCH (06:10)
[2019-05-05] MEDS ORDERED: METHADONE HCL 40 MG DISPERSABLE TABLET ONE (06:10)
[2019-05-05] MEDS: PRENATAL VITAMINS W/ FOLIC ACID TABLET (FP) PO SCH (09:29)
[2019-05-05] MEDS: ASPIRIN 81 MG CHEWABLE TABLETS PO SCH (09:29)
[2019-05-05] MEDS: FOLIC ACID 1 MG TABLET (FP) PO SCH (09:29)
[2019-05-05] MEDS: amLODIPine BESYLATE 5 MG TABLET (FP) PO SCH (09:29)
[2019-05-05] MEDS: ALBUTEROL SO4 8 GM HFA INHALER IH PRN (17:21)
[2019-05-05] MEDS ORDERED: QUEtiapine FUMARATE 100 MG TABLET (FP) ONE (19:20)
[2019-05-05] MEDS: MONTELUKAST NA 10 MG TABLET PO SCH (21:12)
[2019-05-05] MEDS: THIAMINE HCL 100 MG TABLET (FP) PO SCH (21:12)
[2019-05-05] MEDS: MELATONIN 5 MG TABLETS PO PRN (21:13)
[2019-05-05] MEDS: QUEtiapine FUMARATE 300 MG TABLET PO SCH (21:13)
[2019-05-06] MEDS ORDERED: METHADONE HCL 10 MG TABLET ONE (06:39)
[2019-05-06] MEDS ORDERED: METHADONE HCL 40 MG DISPERSABLE TABLET ONE (06:39)
[2019-05-06] MEDS: METHADONE 40 MG, METHADONE 30 MG PO SCH (06:40)
[2019-05-06] MEDS: ASPIRIN 81 MG CHEWABLE TABLETS PO SCH (09:56)
[2019-05-06] MEDS: amLODIPine BESYLATE 5 MG TABLET (FP) PO SCH (09:56)
[2019-05-06] MEDS: FOLIC ACID 1 MG TABLET (FP) PO SCH (09:56)
[2019-05-06] MEDS: PRENATAL VITAMINS W/ FOLIC ACID TABLET (FP) PO SCH (09:57)
[2019-05-06] MEDS ORDERED: QUEtiapine FUMARATE 100 MG TABLET (FP) ONE (19:50)
[2019-05-06] MEDS: THIAMINE HCL 100 MG TABLET (FP) PO SCH (21:15)
[2019-05-06] MEDS: QUEtiapine FUMARATE 300 MG TABLET PO SCH (21:16)
[2019-05-06] MEDS: MONTELUKAST NA 10 MG TABLET PO SCH (21:16)
[2019-05-06] MEDS: MAG HYDROX/AL HYDROX/SIMETH 30 ML UNIT-DOSE CUP PO PRN (21:17)
[2019-05-07] MEDS ORDERED: METHADONE HCL 10 MG TABLET ONE (05:45)
[2019-05-07] MEDS ORDERED: METHADONE HCL 40 MG DISPERSABLE TABLET ONE (05:46)
[2019-05-07] MEDS: METHADONE 40 MG, METHADONE 30 MG PO SCH (06:19)
[2019-05-07] MEDS: ASPIRIN 81 MG CHEWABLE TABLETS PO SCH (09:55)
[2019-05-07] MEDS: FOLIC ACID 1 MG TABLET (FP) PO SCH (09:55)
[2019-05-07] MEDS: amLODIPine BESYLATE 5 MG TABLET (FP) PO SCH (09:55)
[2019-05-07] MEDS: PRENATAL VITAMINS W/ FOLIC ACID TABLET (FP) PO SCH (09:55)
--- NOTE | 2019-05-07 11:26 | PN ---
[facility] Progress Note Note: Pt c/o both lower extremity swellings for past few days. Denies truama or pain. Pt with Hx of HTN on Norvasc 5 mg po daily and Methadone 70 mg po daily Vital Signs - 24 hr 05/07/19 05/07/19 05/07/19 00:30 03:30 07:07 Temperature 98.2 F Pulse Rate 74 Respiratory 16 16 16 Rate Blood Pressure 117/89 05/07/19 09:00 Temperature Pulse Rate 84 Respiratory Rate Blood Pressure 108/70 Laboratory Tests 05/02/19 05/02/19 05/02/19 08:00 08:00 08:00 WBC 5.6 RBC 4.87 Hgb 13.1 Hct 40.1 MCV 82.2 MCH 26.9 MCHC 32.6 RDW 14.3 Plt Count 271 MPV 7.4 L Sodium 142 Potassium 4.4 Chloride 104 Carbon Dioxide 32 Anion Gap 6 L BUN 13.8 Creatinine 0.8 Est GFR (CKD-EPI)AfAm 94.85 Est GFR (CKD-EPI)NonAf 81.84 Random Glucose 112 H Calcium 8.8 Total Bilirubin 0.2 AST 24 ALT 34 Alkaline Phosphatase 69 Total Protein 6.5 Albumin 3.1 L Urine Color Urine Appearance Urine pH Ur Specific [place] Urine Protein Urine Glucose (UA) Urine Ketones Urine Blood Urine Nitrite Urine Bilirubin Urine Urobilinogen Ur Leukocyte Esterase Urine WBC (Auto) Urine RBC (Auto) Urine Casts (Auto) U Epithel Cells (Auto) Urine Bacteria (Auto) RPR Titer Nonreactive HIV 1&2 Antibody Screen HIV P24 Antigen 05/02/19 05/03/19 08:00 15:46 WBC RBC Hgb Hct MCV MCH MCHC RDW Plt Count MPV Sodium Potassium Chloride Carbon Dioxide Anion Gap BUN Creatinine Est GFR (CKD-EPI)AfAm Est GFR (CKD-EPI)NonAf Random Glucose Calcium Total Bilirubin AST ALT Alkaline Phosphatase Total Protein Albumin Urine Color Dk yellow Urine Appearance Clear Urine pH 5.0 D Ur Specific [place] 1.023 Urine Protein Negative Urine Glucose (UA) Negative Urine Ketones Negative Urine Blood Negative Urine Nitrite Negative Urine Bilirubin Negative Urine Urobilinogen 0.2 Ur Leukocyte Esterase 1+ H Urine WBC (Auto) 5 Urine RBC (Auto) 0-4 Urine Casts (Auto) 8 U Epithel Cells (Auto) 6.4 Urine Bacteria (Auto) 75.9 RPR Titer HIV 1&2 Antibody Screen Negative HIV P24 Antigen Negative labs noted VSS Cardiac:s1 s2,rrr lungs:cta,petra Abdomen:soft,+bs,nt,flat Extremities/Skin:slight bilat. ankle edema, none pitting. A/P petra. ankle edema. elevate both legs while in bed
--- NOTE | 2019-05-07 14:14 | PN ---
S Progress Note Note: Pt seen for petra leg swelling- says much bsmPt states has had this for the last few days. No h/o this prior. Was drinking alcohol. Was not eating well. No pain. PE: Vital Signs - 24 hr 05/07/19 05/07/19 05/07/19 00:30 03:30 07:07 Temperature 98.2 F Pulse Rate 74 Respiratory 16 16 16 Rate Blood Pressure 117/89 05/07/19 09:00 Temperature Pulse Rate 84 Respiratory Rate Blood Pressure 108/70 petra swelling is much better now since elevating legs last night albumin low, T Pro is WNL. Continue elevation No evidence for DVT. pt eating better
[2019-05-07] MEDS: ALBUTEROL SO4 8 GM HFA INHALER IH PRN (14:33)
[2019-05-07] MEDS: MAG HYDROX/AL HYDROX/SIMETH 30 ML UNIT-DOSE CUP PO PRN ×2 (16:44→23:00)
[2019-05-07] MEDS ORDERED: QUEtiapine FUMARATE 100 MG TABLET (FP) ONE (19:32)
[2019-05-07] MEDS: MONTELUKAST NA 10 MG TABLET PO SCH (21:28)
[2019-05-07] MEDS: MELATONIN 5 MG TABLETS PO PRN (21:29)
[2019-05-07] MEDS: THIAMINE HCL 100 MG TABLET (FP) PO SCH (21:29)
[2019-05-07] MEDS: QUEtiapine FUMARATE 300 MG TABLET PO SCH (21:30)
[2019-05-08] MEDS ORDERED: METHADONE HCL 10 MG TABLET ONE (03:22)
[2019-05-08] MEDS ORDERED: METHADONE HCL 40 MG DISPERSABLE TABLET ONE (03:23)
[2019-05-08] MEDS: METHADONE 40 MG, METHADONE 30 MG PO SCH (06:42)
[2019-05-08] MEDS: ASPIRIN 81 MG CHEWABLE TABLETS PO SCH (09:40)
[2019-05-08] MEDS: FOLIC ACID 1 MG TABLET (FP) PO SCH (09:41)
[2019-05-08] MEDS: PRENATAL VITAMINS W/ FOLIC ACID TABLET (FP) PO SCH (09:41)
[2019-05-08] MEDS: amLODIPine BESYLATE 5 MG TABLET (FP) PO SCH (09:41)
[2019-05-08] MEDS ORDERED: QUEtiapine FUMARATE 100 MG TABLET (FP) ONE (19:15)
[2019-05-08] MEDS: THIAMINE HCL 100 MG TABLET (FP) PO SCH (21:32)
[2019-05-08] MEDS: MONTELUKAST NA 10 MG TABLET PO SCH (21:32)
[2019-05-08] MEDS: QUEtiapine FUMARATE 300 MG TABLET PO SCH (21:32)
[2019-05-09] MEDS ORDERED: METHADONE HCL 40 MG DISPERSABLE TABLET ONE (04:01)
[2019-05-09] MEDS ORDERED: METHADONE HCL 10 MG TABLET ONE (04:01)
[2019-05-09] MEDS: METHADONE 40 MG, METHADONE 30 MG PO SCH (06:35)
[2019-05-09] MEDS: ASPIRIN 81 MG CHEWABLE TABLETS PO SCH (09:53)
[2019-05-09] MEDS: FOLIC ACID 1 MG TABLET (FP) PO SCH (09:53)
[2019-05-09] MEDS: amLODIPine BESYLATE 5 MG TABLET (FP) PO SCH (09:53)
[2019-05-09] MEDS: PRENATAL VITAMINS W/ FOLIC ACID TABLET (FP) PO SCH (09:53)
[2019-05-09] MEDS: ALBUTEROL SO4 8 GM HFA INHALER IH PRN (15:49)
[2019-05-09] MEDS ORDERED: QUEtiapine FUMARATE 100 MG TABLET (FP) ONE (19:42)
[2019-05-09] MEDS: MONTELUKAST NA 10 MG TABLET PO SCH (21:29)
[2019-05-09] MEDS: THIAMINE HCL 100 MG TABLET (FP) PO SCH (21:29)
[2019-05-09] MEDS: QUEtiapine FUMARATE 300 MG TABLET PO SCH (21:29)
[2019-05-09] MEDS: MELATONIN 5 MG TABLETS PO PRN (21:30)
[2019-05-10] MEDS ORDERED: METHADONE HCL 10 MG TABLET ONE (05:41)
[2019-05-10] MEDS ORDERED: METHADONE HCL 40 MG DISPERSABLE TABLET ONE (05:42)
[2019-05-10] MEDS ORDERED: METHADONE HCL 10 MG TABLET PO SCH (06:00)
[2019-05-10] MEDS: METHADONE 40 MG, METHADONE 30 MG PO SCH (06:28)
[2019-05-10] MEDS: amLODIPine BESYLATE 5 MG TABLET (FP) PO SCH (09:50)
[2019-05-10] MEDS: PRENATAL VITAMINS W/ FOLIC ACID TABLET (FP) PO SCH (09:50)
[2019-05-10] MEDS: FOLIC ACID 1 MG TABLET (FP) PO SCH (09:50)
[2019-05-10] MEDS: ASPIRIN 81 MG CHEWABLE TABLETS PO SCH (09:50)
[2019-05-10] MEDS ORDERED: QUEtiapine FUMARATE 100 MG TABLET (FP) ONE (19:46)
[2019-05-10] MEDS: THIAMINE HCL 100 MG TABLET (FP) PO SCH (21:16)
[2019-05-10] MEDS: MONTELUKAST NA 10 MG TABLET PO SCH (21:16)
[2019-05-10] MEDS: QUEtiapine FUMARATE 300 MG TABLET PO SCH (21:16)
[2019-05-10] MEDS: MELATONIN 5 MG TABLETS PO PRN (21:17)
[2019-05-10] MEDS: NICOTINE POLACRILEX 2 MG GUM BUC PRN (21:17)
[2019-05-11] MEDS ORDERED: METHADONE HCL 40 MG DISPERSABLE TABLET ONE (06:35)
[2019-05-11] MEDS ORDERED: METHADONE HCL 10 MG TABLET ONE (06:35)
[2019-05-11] MEDS: METHADONE 40 MG, METHADONE 30 MG PO SCH (06:43)
[2019-05-11] MEDS: NICOTINE POLACRILEX 2 MG GUM BUC PRN ×3 (06:45→21:21)
[2019-05-11] MEDS: ALBUTEROL SO4 8 GM HFA INHALER IH PRN (07:03)
[2019-05-11] MEDS: ASPIRIN 81 MG CHEWABLE TABLETS PO SCH (09:35)
[2019-05-11] MEDS: amLODIPine BESYLATE 5 MG TABLET (FP) PO SCH (09:35)
[2019-05-11] MEDS: FOLIC ACID 1 MG TABLET (FP) PO SCH (09:35)
[2019-05-11] MEDS: PRENATAL VITAMINS W/ FOLIC ACID TABLET (FP) PO SCH (09:35)
[2019-05-11] MEDS ORDERED: QUEtiapine FUMARATE 100 MG TABLET (FP) ONE (19:37)
[2019-05-11] MEDS: QUEtiapine FUMARATE 300 MG TABLET PO SCH (21:19)
[2019-05-11] MEDS: MELATONIN 5 MG TABLETS PO PRN (21:20)
[2019-05-11] MEDS: MONTELUKAST NA 10 MG TABLET PO SCH (21:20)
[2019-05-11] MEDS: THIAMINE HCL 100 MG TABLET (FP) PO SCH (21:20)
[2019-05-12] MEDS ORDERED: METHADONE HCL 10 MG TABLET ONE (06:48)
[2019-05-12] MEDS ORDERED: METHADONE HCL 40 MG DISPERSABLE TABLET ONE (06:48)
[2019-05-12] MEDS: METHADONE 40 MG, METHADONE 30 MG PO SCH (06:54)
[2019-05-12] MEDS: NICOTINE POLACRILEX 2 MG GUM BUC PRN ×3 (06:55→21:18)
[2019-05-12] MEDS: ASPIRIN 81 MG CHEWABLE TABLETS PO SCH (10:02)
[2019-05-12] MEDS: amLODIPine BESYLATE 5 MG TABLET (FP) PO SCH (10:02)
[2019-05-12] MEDS: PRENATAL VITAMINS W/ FOLIC ACID TABLET (FP) PO SCH (10:02)
[2019-05-12] MEDS: FOLIC ACID 1 MG TABLET (FP) PO SCH (10:02)
[2019-05-12] MEDS ORDERED: QUEtiapine FUMARATE 100 MG TABLET (FP) ONE (19:44)
[2019-05-12] MEDS: MELATONIN 5 MG TABLETS PO PRN (21:16)
[2019-05-12] MEDS: MONTELUKAST NA 10 MG TABLET PO SCH (21:16)
[2019-05-12] MEDS: THIAMINE HCL 100 MG TABLET (FP) PO SCH (21:16)
[2019-05-12] MEDS: QUEtiapine FUMARATE 300 MG TABLET PO SCH (21:16)
[2019-05-12] MEDS: ALBUTEROL SO4 8 GM HFA INHALER IH PRN (21:17)
[2019-05-13] MEDS ORDERED: METHADONE HCL 10 MG TABLET ONE (04:16)
[2019-05-13] MEDS ORDERED: METHADONE HCL 40 MG DISPERSABLE TABLET ONE (04:16)
[2019-05-13] MEDS: METHADONE 40 MG, METHADONE 30 MG PO SCH (06:37)
[2019-05-13] MEDS: NICOTINE POLACRILEX 2 MG GUM BUC PRN ×3 (06:38→21:07)
[2019-05-13] MEDS: PRENATAL VITAMINS W/ FOLIC ACID TABLET (FP) PO SCH (10:09)
[2019-05-13] MEDS: amLODIPine BESYLATE 5 MG TABLET (FP) PO SCH (10:09)
[2019-05-13] MEDS: ASPIRIN 81 MG CHEWABLE TABLETS PO SCH (10:09)
[2019-05-13] MEDS: FOLIC ACID 1 MG TABLET (FP) PO SCH (10:09)
[2019-05-13] MEDS ORDERED: QUEtiapine FUMARATE 100 MG TABLET (FP) ONE (19:07)
[2019-05-13] MEDS: MELATONIN 5 MG TABLETS PO PRN (21:05)
[2019-05-13] MEDS: QUEtiapine FUMARATE 300 MG TABLET PO SCH (21:05)
[2019-05-13] MEDS: THIAMINE HCL 100 MG TABLET (FP) PO SCH (21:05)
[2019-05-13] MEDS: MONTELUKAST NA 10 MG TABLET PO SCH (21:05)
[2019-05-14] MEDS ORDERED: METHADONE HCL 40 MG DISPERSABLE TABLET ONE (06:48)
[2019-05-14] MEDS ORDERED: METHADONE HCL 10 MG TABLET ONE (06:48)
[2019-05-14] MEDS: METHADONE 40 MG, METHADONE 30 MG PO SCH (06:49)
[2019-05-14] MEDS: ASPIRIN 81 MG CHEWABLE TABLETS PO SCH (10:08)
[2019-05-14] MEDS: PRENATAL VITAMINS W/ FOLIC ACID TABLET (FP) PO SCH (10:08)
[2019-05-14] MEDS: amLODIPine BESYLATE 5 MG TABLET (FP) PO SCH (10:08)
[2019-05-14] MEDS: FOLIC ACID 1 MG TABLET (FP) PO SCH (10:08)
--- NOTE | 2019-05-14 11:15 | PN ---
[facility] Progress Note Note: BP 99/60, asymptomatic,Norvasc held. BP to be repeated, and if BP > 120/60, RN will administer Norvasc.
[2019-05-14] MEDS: MONTELUKAST NA 10 MG TABLET PO SCH (21:38)
[2019-05-14] MEDS: THIAMINE HCL 100 MG TABLET (FP) PO SCH (21:38)
[2019-05-14] MEDS: QUEtiapine FUMARATE 300 MG TABLET PO SCH (21:39)
[2019-05-14] MEDS: MELATONIN 5 MG TABLETS PO PRN (21:39)
[2019-05-15] MEDS ORDERED: METHADONE HCL 10 MG TABLET ONE (04:10)
[2019-05-15] MEDS ORDERED: METHADONE HCL 40 MG DISPERSABLE TABLET ONE (04:10)
[2019-05-15] MEDS: METHADONE 40 MG, METHADONE 30 MG PO SCH (06:24)
[2019-05-15] MEDS: ASPIRIN 81 MG CHEWABLE TABLETS PO SCH (11:22)
[2019-05-15] MEDS: amLODIPine BESYLATE 5 MG TABLET (FP) PO SCH (11:22)
[2019-05-15] MEDS: PRENATAL VITAMINS W/ FOLIC ACID TABLET (FP) PO SCH (11:23)
[2019-05-15] MEDS: FOLIC ACID 1 MG TABLET (FP) PO SCH (11:23)
[2019-05-15] MEDS: NICOTINE POLACRILEX 2 MG GUM BUC PRN ×2 (11:24→22:31)
[2019-05-15] MEDS: MONTELUKAST NA 10 MG TABLET PO SCH (22:29)
[2019-05-15] MEDS: QUEtiapine FUMARATE 300 MG TABLET PO SCH (22:29)
[2019-05-15] MEDS: THIAMINE HCL 100 MG TABLET (FP) PO SCH (22:29)
[2019-05-15] MEDS: MELATONIN 5 MG TABLETS PO PRN (22:30)
[2019-05-16] MEDS ORDERED: METHADONE HCL 10 MG TABLET ONE (04:19)
[2019-05-16] MEDS ORDERED: METHADONE HCL 40 MG DISPERSABLE TABLET ONE (04:20)
[2019-05-16] MEDS: METHADONE 40 MG, METHADONE 30 MG PO SCH (06:33)
[2019-05-16] MEDS: ASPIRIN 81 MG CHEWABLE TABLETS PO SCH (10:01)
[2019-05-16] MEDS: amLODIPine BESYLATE 5 MG TABLET (FP) PO SCH (10:02)
[2019-05-16] MEDS: PRENATAL VITAMINS W/ FOLIC ACID TABLET (FP) PO SCH (10:02)
[2019-05-16] MEDS: ALBUTEROL SO4 8 GM HFA INHALER IH PRN ×2 (10:02→21:50)
[2019-05-16] MEDS: FOLIC ACID 1 MG TABLET (FP) PO SCH (10:02)
[2019-05-16] MEDS: NICOTINE POLACRILEX 2 MG GUM BUC PRN ×2 (10:02→21:50)
[2019-05-16] MEDS: THIAMINE HCL 100 MG TABLET (FP) PO SCH (21:48)
[2019-05-16] MEDS: MONTELUKAST NA 10 MG TABLET PO SCH (21:48)
[2019-05-16] MEDS: QUEtiapine FUMARATE 300 MG TABLET PO SCH (21:49)
[2019-05-16] MEDS: MELATONIN 5 MG TABLETS PO PRN (21:49)
[2019-05-17] MEDS ORDERED: METHADONE HCL 10 MG TABLET ONE (04:14)
[2019-05-17] MEDS ORDERED: METHADONE HCL 40 MG DISPERSABLE TABLET ONE (04:14)
[2019-05-17] MEDS: METHADONE 40 MG, METHADONE 30 MG PO SCH (06:35)
[2019-05-17] MEDS: NICOTINE POLACRILEX 2 MG GUM BUC PRN ×3 (06:37→21:28)
[2019-05-17] MEDS: ASPIRIN 81 MG CHEWABLE TABLETS PO SCH (10:20)
[2019-05-17] MEDS: FOLIC ACID 1 MG TABLET (FP) PO SCH (10:20)
[2019-05-17] MEDS: amLODIPine BESYLATE 5 MG TABLET (FP) PO SCH (10:20)
[2019-05-17] MEDS: PRENATAL VITAMINS W/ FOLIC ACID TABLET (FP) PO SCH (10:20)
[2019-05-17] MEDS: QUEtiapine FUMARATE 300 MG TABLET PO SCH (21:26)
[2019-05-17] MEDS: ALBUTEROL SO4 8 GM HFA INHALER IH PRN (21:26)
[2019-05-17] MEDS: MONTELUKAST NA 10 MG TABLET PO SCH (21:26)
[2019-05-17] MEDS: MELATONIN 5 MG TABLETS PO PRN (21:27)
[2019-05-17] MEDS: THIAMINE HCL 100 MG TABLET (FP) PO SCH (21:28)
[2019-05-18] MEDS ORDERED: METHADONE HCL 40 MG DISPERSABLE TABLET ONE (06:21)
[2019-05-18] MEDS ORDERED: METHADONE HCL 10 MG TABLET ONE (06:21)
[2019-05-18] MEDS: METHADONE 40 MG, METHADONE 30 MG PO SCH (06:52)
[2019-05-18] MEDS: PRENATAL VITAMINS W/ FOLIC ACID TABLET (FP) PO SCH (10:12)
[2019-05-18] MEDS: ASPIRIN 81 MG CHEWABLE TABLETS PO SCH (10:12)
[2019-05-18] MEDS: FOLIC ACID 1 MG TABLET (FP) PO SCH (10:12)
[2019-05-18] MEDS: NICOTINE POLACRILEX 2 MG GUM BUC PRN (10:13)
[2019-05-18] MEDS: amLODIPine BESYLATE 5 MG TABLET (FP) PO SCH (10:13)
[2019-05-18] MEDS: ALBUTEROL SO4 8 GM HFA INHALER IH PRN (10:13)
[2019-05-18] MEDS: THIAMINE HCL 100 MG TABLET (FP) PO SCH (21:25)
[2019-05-18] MEDS: QUEtiapine FUMARATE 300 MG TABLET PO SCH (21:26)
[2019-05-18] MEDS: MELATONIN 5 MG TABLETS PO PRN (21:26)
[2019-05-18] MEDS: MONTELUKAST NA 10 MG TABLET PO SCH (21:26)
[2019-05-19] MEDS ORDERED: METHADONE HCL 10 MG TABLET ONE (06:03)
[2019-05-19] MEDS ORDERED: METHADONE HCL 40 MG DISPERSABLE TABLET ONE (06:03)
[2019-05-19] MEDS: METHADONE 40 MG, METHADONE 30 MG PO SCH (06:45)
[2019-05-19] MEDS: ASPIRIN 81 MG CHEWABLE TABLETS PO SCH (10:15)
[2019-05-19] MEDS: FOLIC ACID 1 MG TABLET (FP) PO SCH (10:15)
[2019-05-19] MEDS: PRENATAL VITAMINS W/ FOLIC ACID TABLET (FP) PO SCH (10:15)
[2019-05-19] MEDS: NICOTINE POLACRILEX 2 MG GUM BUC PRN ×2 (10:16→21:41)
[2019-05-19] MEDS: amLODIPine BESYLATE 5 MG TABLET (FP) PO SCH (10:16)
[2019-05-19] MEDS: QUEtiapine FUMARATE 300 MG TABLET PO SCH (21:40)
[2019-05-19] MEDS: THIAMINE HCL 100 MG TABLET (FP) PO SCH (21:40)
[2019-05-19] MEDS: MONTELUKAST NA 10 MG TABLET PO SCH (21:40)
[2019-05-20] MEDS ORDERED: METHADONE HCL 10 MG TABLET ONE (06:00)
[2019-05-20] MEDS ORDERED: METHADONE HCL 40 MG DISPERSABLE TABLET ONE (06:00)
[2019-05-20] MEDS: METHADONE 40 MG, METHADONE 30 MG PO SCH (07:02)
[2019-05-20] MEDS: ALBUTEROL SO4 8 GM HFA INHALER IH PRN ×2 (10:27→21:18)
[2019-05-20] MEDS: amLODIPine BESYLATE 5 MG TABLET (FP) PO SCH (10:27)
[2019-05-20] MEDS: NICOTINE POLACRILEX 2 MG GUM BUC PRN ×2 (10:27→21:18)
[2019-05-20] MEDS: ASPIRIN 81 MG CHEWABLE TABLETS PO SCH (10:27)
[2019-05-20] MEDS: FOLIC ACID 1 MG TABLET (FP) PO SCH (10:27)
[2019-05-20] MEDS: PRENATAL VITAMINS W/ FOLIC ACID TABLET (FP) PO SCH (10:27)
[2019-05-20] MEDS: MELATONIN 5 MG TABLETS PO PRN (21:16)
[2019-05-20] MEDS: QUEtiapine FUMARATE 300 MG TABLET PO SCH (21:16)
[2019-05-20] MEDS: MONTELUKAST NA 10 MG TABLET PO SCH (21:16)
[2019-05-20] MEDS: THIAMINE HCL 100 MG TABLET (FP) PO SCH (21:16)
[2019-05-21] MEDS ORDERED: METHADONE HCL 10 MG TABLET ONE (04:09)
[2019-05-21] MEDS ORDERED: METHADONE HCL 40 MG DISPERSABLE TABLET ONE (04:09)
[2019-05-21] MEDS: METHADONE 40 MG, METHADONE 30 MG PO SCH (06:34)
[2019-05-21] MEDS: NICOTINE POLACRILEX 2 MG GUM BUC PRN ×3 (06:36→21:13)
[2019-05-21] MEDS: FOLIC ACID 1 MG TABLET (FP) PO SCH (09:47)
[2019-05-21] MEDS: PRENATAL VITAMINS W/ FOLIC ACID TABLET (FP) PO SCH (09:48)
[2019-05-21] MEDS: amLODIPine BESYLATE 5 MG TABLET (FP) PO SCH (09:48)
[2019-05-21] MEDS: ASPIRIN 81 MG CHEWABLE TABLETS PO SCH (09:48)
[2019-05-21] MEDS: MONTELUKAST NA 10 MG TABLET PO SCH (21:10)
[2019-05-21] MEDS: THIAMINE HCL 100 MG TABLET (FP) PO SCH (21:11)
[2019-05-21] MEDS: QUEtiapine FUMARATE 300 MG TABLET PO SCH (21:11)
[2019-05-21] MEDS: MELATONIN 5 MG TABLETS PO PRN (21:12)
[2019-05-21] MEDS: ALBUTEROL SO4 8 GM HFA INHALER IH PRN (21:13)
[2019-05-22] MEDS ORDERED: METHADONE HCL 10 MG TABLET ONE (04:07)
[2019-05-22] MEDS ORDERED: METHADONE HCL 40 MG DISPERSABLE TABLET ONE (04:07)
[2019-05-22] MEDS: METHADONE 40 MG, METHADONE 30 MG PO SCH (06:50)
[2019-05-22] MEDS: NICOTINE POLACRILEX 2 MG GUM BUC PRN ×2 (06:51→09:41)
[2019-05-22] MEDS: PRENATAL VITAMINS W/ FOLIC ACID TABLET (FP) PO SCH (09:40)
[2019-05-22] MEDS: amLODIPine BESYLATE 5 MG TABLET (FP) PO SCH (09:40)
[2019-05-22] MEDS: FOLIC ACID 1 MG TABLET (FP) PO SCH (09:40)
[2019-05-22] MEDS: ASPIRIN 81 MG CHEWABLE TABLETS PO SCH (09:40)
[2019-05-22] MEDS: THIAMINE HCL 100 MG TABLET (FP) PO SCH (21:10)
[2019-05-22] MEDS: QUEtiapine FUMARATE 300 MG TABLET PO SCH (21:10)
[2019-05-22] MEDS: MELATONIN 5 MG TABLETS PO PRN (21:10)
[2019-05-22] MEDS: MONTELUKAST NA 10 MG TABLET PO SCH (21:10)
[2019-05-23] MEDS ORDERED: METHADONE HCL 10 MG TABLET ONE (04:17)
[2019-05-23] MEDS ORDERED: METHADONE HCL 40 MG DISPERSABLE TABLET ONE (04:17)
[2019-05-23] MEDS: METHADONE 40 MG, METHADONE 30 MG PO SCH (06:31)
[2019-05-23] MEDS: NICOTINE POLACRILEX 2 MG GUM BUC PRN ×2 (06:32→10:00)
[2019-05-23] MEDS: ASPIRIN 81 MG CHEWABLE TABLETS PO SCH (10:00)
[2019-05-23] MEDS: FOLIC ACID 1 MG TABLET (FP) PO SCH (10:00)
[2019-05-23] MEDS: PRENATAL VITAMINS W/ FOLIC ACID TABLET (FP) PO SCH (10:00)
[2019-05-23] MEDS: amLODIPine BESYLATE 5 MG TABLET (FP) PO SCH (10:00)
[2019-05-23] MEDS: MELATONIN 5 MG TABLETS PO PRN (21:46)
[2019-05-23] MEDS: THIAMINE HCL 100 MG TABLET (FP) PO SCH (21:46)
[2019-05-23] MEDS: MONTELUKAST NA 10 MG TABLET PO SCH (21:46)
[2019-05-23] MEDS: QUEtiapine FUMARATE 300 MG TABLET PO SCH (21:47)
[2019-05-24] MEDS ORDERED: METHADONE HCL 10 MG TABLET ONE (05:58)
[2019-05-24] MEDS ORDERED: METHADONE HCL 40 MG DISPERSABLE TABLET ONE (05:58)
[2019-05-24] MEDS: METHADONE 40 MG, METHADONE 30 MG PO SCH (06:40)
[2019-05-24] MEDS: PRENATAL VITAMINS W/ FOLIC ACID TABLET (FP) PO SCH (09:53)
[2019-05-24] MEDS: FOLIC ACID 1 MG TABLET (FP) PO SCH (09:53)
[2019-05-24] MEDS: ASPIRIN 81 MG CHEWABLE TABLETS PO SCH (09:53)
[2019-05-24] MEDS: amLODIPine BESYLATE 5 MG TABLET (FP) PO SCH (09:53)
[2019-05-24] MEDS: NICOTINE POLACRILEX 2 MG GUM BUC PRN (09:54)
[2019-05-24] MEDS: MONTELUKAST NA 10 MG TABLET PO SCH (21:44)
[2019-05-24] MEDS: THIAMINE HCL 100 MG TABLET (FP) PO SCH (21:44)
[2019-05-24] MEDS: MELATONIN 5 MG TABLETS PO PRN (21:44)
[2019-05-24] MEDS: QUEtiapine FUMARATE 300 MG TABLET PO SCH (21:45)
[2019-05-25] MEDS ORDERED: METHADONE HCL 10 MG TABLET ONE (03:55)
[2019-05-25] MEDS ORDERED: METHADONE HCL 40 MG DISPERSABLE TABLET ONE (03:55)
[2019-05-25] MEDS: METHADONE 40 MG, METHADONE 30 MG PO SCH (06:23)
[2019-05-25] MEDS: NICOTINE POLACRILEX 2 MG GUM BUC PRN ×3 (06:23→21:34)
[2019-05-25] MEDS: FOLIC ACID 1 MG TABLET (FP) PO SCH (09:44)
[2019-05-25] MEDS: ASPIRIN 81 MG CHEWABLE TABLETS PO SCH (09:44)
[2019-05-25] MEDS: amLODIPine BESYLATE 5 MG TABLET (FP) PO SCH (09:44)
[2019-05-25] MEDS: PRENATAL VITAMINS W/ FOLIC ACID TABLET (FP) PO SCH (09:44)
[2019-05-25] MEDS: QUEtiapine FUMARATE 300 MG TABLET PO SCH (21:33)
[2019-05-25] MEDS: ALBUTEROL SO4 8 GM HFA INHALER IH PRN (21:33)
[2019-05-25] MEDS: MELATONIN 5 MG TABLETS PO PRN (21:33)
[2019-05-25] MEDS: MONTELUKAST NA 10 MG TABLET PO SCH (21:33)
[2019-05-25] MEDS: THIAMINE HCL 100 MG TABLET (FP) PO SCH (21:33)
[2019-05-26] MEDS ORDERED: METHADONE HCL 10 MG TABLET ONE (03:56)
[2019-05-26] MEDS ORDERED: METHADONE HCL 40 MG DISPERSABLE TABLET ONE (03:57)
[2019-05-26] MEDS: METHADONE 40 MG, METHADONE 30 MG PO SCH (06:37)
[2019-05-26] MEDS: NICOTINE POLACRILEX 2 MG GUM BUC PRN ×3 (06:38→21:30)
[2019-05-26] MEDS: ASPIRIN 81 MG CHEWABLE TABLETS PO SCH (10:30)
[2019-05-26] MEDS: PRENATAL VITAMINS W/ FOLIC ACID TABLET (FP) PO SCH (10:30)
[2019-05-26] MEDS: FOLIC ACID 1 MG TABLET (FP) PO SCH (10:30)
[2019-05-26] MEDS: ALBUTEROL SO4 8 GM HFA INHALER IH PRN ×2 (10:31→21:29)
[2019-05-26] MEDS: amLODIPine BESYLATE 5 MG TABLET (FP) PO SCH (10:32)
[2019-05-26] MEDS: MELATONIN 5 MG TABLETS PO PRN (21:29)
[2019-05-26] MEDS: MONTELUKAST NA 10 MG TABLET PO SCH (21:29)
[2019-05-26] MEDS: QUEtiapine FUMARATE 300 MG TABLET PO SCH (21:29)
[2019-05-26] MEDS: THIAMINE HCL 100 MG TABLET (FP) PO SCH (21:29)
[2019-05-27] MEDS ORDERED: METHADONE HCL 10 MG TABLET ONE (06:24)
[2019-05-27] MEDS ORDERED: METHADONE HCL 40 MG DISPERSABLE TABLET ONE (06:24)
[2019-05-27] MEDS: METHADONE 40 MG, METHADONE 30 MG PO SCH (06:26)
[2019-05-27] MEDS: NICOTINE POLACRILEX 2 MG GUM BUC PRN (06:27)
[2019-05-27] MEDS: PRENATAL VITAMINS W/ FOLIC ACID TABLET (FP) PO SCH (10:02)
[2019-05-27] MEDS: ASPIRIN 81 MG CHEWABLE TABLETS PO SCH (10:04)
[2019-05-27] MEDS: FOLIC ACID 1 MG TABLET (FP) PO SCH (10:04)
[2019-05-27] MEDS: amLODIPine BESYLATE 5 MG TABLET (FP) PO SCH (10:04)
[2019-05-27] MEDS: MAG HYDROX/AL HYDROX/SIMETH 30 ML UNIT-DOSE CUP PO PRN (12:09)
[2019-05-27] MEDS: THIAMINE HCL 100 MG TABLET (FP) PO SCH (21:27)
[2019-05-27] MEDS: MONTELUKAST NA 10 MG TABLET PO SCH (21:28)
[2019-05-27] MEDS: ALBUTEROL SO4 8 GM HFA INHALER IH PRN (21:28)
[2019-05-27] MEDS: QUEtiapine FUMARATE 300 MG TABLET PO SCH (21:29)
[2019-05-28] MEDS ORDERED: METHADONE HCL 10 MG TABLET ONE (06:04)
[2019-05-28] MEDS ORDERED: METHADONE HCL 40 MG DISPERSABLE TABLET ONE (06:04)
[2019-05-28] MEDS: METHADONE 40 MG, METHADONE 30 MG PO SCH (06:42)
[2019-05-28] MEDS: PRENATAL VITAMINS W/ FOLIC ACID TABLET (FP) PO SCH (10:23)
[2019-05-28] MEDS: ASPIRIN 81 MG CHEWABLE TABLETS PO SCH (10:23)
[2019-05-28] MEDS: amLODIPine BESYLATE 5 MG TABLET (FP) PO SCH (10:23)
[2019-05-28] MEDS: FOLIC ACID 1 MG TABLET (FP) PO SCH (10:23)
[2019-05-28] MEDS: ALBUTEROL SO4 8 GM HFA INHALER IH PRN (10:24)
[2019-05-28] MEDS: NICOTINE POLACRILEX 2 MG GUM BUC PRN (10:24)
[2019-05-28] MEDS: THIAMINE HCL 100 MG TABLET (FP) PO SCH (21:19)
[2019-05-28] MEDS: MONTELUKAST NA 10 MG TABLET PO SCH (21:19)
[2019-05-28] MEDS: QUEtiapine FUMARATE 300 MG TABLET PO SCH (21:20)
[2019-05-28] MEDS: MELATONIN 5 MG TABLETS PO PRN (21:20)
[2019-05-29] MEDS ORDERED: METHADONE HCL 10 MG TABLET ONE (04:15)
[2019-05-29] MEDS ORDERED: METHADONE HCL 40 MG DISPERSABLE TABLET ONE (04:16)
[2019-05-29] MEDS: METHADONE 40 MG, METHADONE 30 MG PO SCH (06:49)
[2019-05-29] MEDS: NICOTINE POLACRILEX 2 MG GUM BUC PRN ×2 (06:50→10:19)
[2019-05-29 07:34] VITALS: TEMP 97.9
[2019-05-29] MEDS: PRENATAL VITAMINS W/ FOLIC ACID TABLET (FP) PO SCH (10:17)
[2019-05-29] MEDS: amLODIPine BESYLATE 5 MG TABLET (FP) PO SCH (10:17)
[2019-05-29] MEDS: ASPIRIN 81 MG CHEWABLE TABLETS PO SCH (10:17)
[2019-05-29] MEDS: FOLIC ACID 1 MG TABLET (FP) PO SCH (10:17)
[2019-05-29] MEDS: ALBUTEROL SO4 8 GM HFA INHALER IH PRN (10:18)
--- NOTE | 2019-05-29 11:01 | DS ---
[facility] Rehab Discharge Summary - [facility] Rehab Discharge Summary Admission Date: 05/01/19 Discharge Date: 05/30/19 - History Present History: Alcohol dependence, Cocaine dependence, Opioid dependence Pertinent Past History: 59 yo with opioid use disorder, on MAT methadone, states drinks several pints of alcohol- last use 3 days ago. h/o asthma, high chol, bipolar/schizophrenia, HTN. PCP= Dr. Corrales and [facility] Cocaine- 4 bags/day [facility] THC- daily heroin occasional use - Discharge Physical Exam Vital Signs: Vital Signs Temperature 97.9 F 05/29/19 07:33 Pulse Rate 74 05/29/19 07:33 Respiratory Rate 18 05/29/19 07:33 Blood Pressure 130/85 05/29/19 07:33 O2 Sat by Pulse Oximetry (%) Pertinent Admission Physical Exam Findings: - Physical General Appearance: no apparent distress HEENTM: normocephalic Respiratory:, Lungs Clear Neck: supple Cardiology: S1 s2 Abdominal: +Bowel Sounds Musculoskeletal: Full weight bearing Neurological: Cn 2-12 intact - Treatment Discharge Condition: Outpatient referral accepted (Will go to [facility]. medically stable for discharge.) Hospital Course: attended groups, had 1:1 with counselor, was seen by psychiatry. Was adherent to the medication and treatment plan. - Medication Discharge Medications: Ambulatory Orders traZODone HCL [Desyrel -] 200 mg PO HS 12/16/16 Albuterol Sulfate Inhaler - [Ventolin HFA Inhaler -] 2 inh PO Q4H PRN #1 inh Folic Acid 1 mg PO DAILY 05/01/19 Montelukast Sodium [Singulair] 10 mg PO HS 05/01/19 Multivitamins [Tab-A-Vit -] 1 tab PO DAILY 05/01/19 Amlodipine Besylate 5 mg PO DAILY #14 tablet 05/29/19 Aspirin [ASA -] 81 mg PO DAILY #30 tab 05/29/19 Quetiapine Fumarate [Seroquel -] 300 mg PO HS #30 tablet 05/29/19 - Discharge Instructions Diet, activity, other medical instructions: Diet: as ordered Activity: as ordered Other medical instructions: as ordered - Diagnosis (1) Alcohol dependence Current Visit: Yes Status: Chronic (2) Cocaine dependence Current Visit: Yes Status: Chronic (3) Opioid dependence Current Visit: No Status: Chronic - AMA Did Patient Leave Against Medical Advice: No
--- NOTE | 2019-05-29 14:43 | PN ---
[facility] Progress Note Note: Patient is scheduled for discharge tomorrow. Script for 30 days of Seroquel 300 mg/hs will be electronically transmitted to [facility] at [address] [place], [place] [id number]
[2019-05-29] MEDS: MONTELUKAST NA 10 MG TABLET PO SCH (21:28)
[2019-05-29] MEDS: THIAMINE HCL 100 MG TABLET (FP) PO SCH (21:28)
[2019-05-29] MEDS: QUEtiapine FUMARATE 300 MG TABLET PO SCH (21:29)
[2019-05-30] MEDS ORDERED: METHADONE HCL 40 MG DISPERSABLE TABLET ONE (03:25)
[2019-05-30] MEDS ORDERED: METHADONE HCL 10 MG TABLET ONE (03:25)
[2019-05-30] MEDS: METHADONE 40 MG, METHADONE 30 MG PO SCH (06:47)
[2019-05-30] MEDS: NICOTINE POLACRILEX 2 MG GUM BUC PRN ×2 (06:48→09:41)
[2019-05-30 09:10] VITALS: BP 121/78; PULSE 110
[2019-05-30] MEDS: FOLIC ACID 1 MG TABLET (FP) PO SCH (09:40)
[2019-05-30] MEDS: PRENATAL VITAMINS W/ FOLIC ACID TABLET (FP) PO SCH (09:40)
[2019-05-30] MEDS: amLODIPine BESYLATE 5 MG TABLET (FP) PO SCH (09:40)
[2019-05-30] MEDS: ASPIRIN 81 MG CHEWABLE TABLETS PO SCH (09:40)
== END 2019-05-30 09:50 | disposition home or self-care (01) | DRG 772 ==
LOC: YASAS 13:50 → Y3E 17:40
PROVIDERS: ADMIT Neuromusculoskeletal Medicine & OMM; ATTEND Neuromusculoskeletal Medicine & OMM
PROC: HZ42ZZZ Group Counseling for Substance Abuse Treatment, Cognitive-Behavioral (ICD-10-PCS; principal; 2019-05-01)
DX: F10.20 Alcohol dependence, uncomplicated (principal); F11.20 Opioid dependence, uncomplicated; F14.20 Cocaine dependence, uncomplicated; F17.210 Nicotine dependence, cigarettes, uncomplicated; F31.9 Bipolar disorder, unspecified; F20.0 Paranoid schizophrenia; F25.9 Schizoaffective disorder, unspecified; I10 Essential (primary) hypertension; I25.2 Old myocardial infarction; J45.909 Unspecified asthma, uncomplicated; R60.0 Localized edema; R63.4 Abnormal weight loss; E78.00 Pure hypercholesterolemia, unspecified; Z88.8 Allergy status to other drugs, medicaments and biological substances
CPT/HCPCS: 36415; 71046-TC-FY; 80053; 81003; 85027; 86593; 87389